=== PATIENT | female | born 1965 | race Caucasian/White ===

== ENCOUNTER → 2016-08-07 | Outpatient (CLI) | payer OTHER ==
[~2016-08-07] MED LIST: ALBU8.5H IH; BACL20TA PO; BUSP10TA3 PO; DIAZ10 PO; DIPH25 PO; DOCU100C19 PO; DULO60CA44 PO; ESCI20TA PO; GABA-318 PO; HYDR25TA PO; LISI-662 PO; LURA40 PO; METF500T4 PO; MORP15 PO; OXYC5CAP3 PO; OXYM20TA14 PO; PROP20 PO; SITA100 PO; ZOLP10 PO
== END | disposition home or self-care (01) ==
LOC: RADMN 13:20
PROVIDERS: ATTEND Internal Medicine Geriatric Medicine
DX: R10.2 Pelvic and perineal pain (principal)
CPT/HCPCS: 72170